=== PATIENT | male | born 1985 | race Caucasian/White ===

== ENCOUNTER → 2018-10-31 | Outpatient (CLI) | payer BC, OTHER ==
--- NOTE | 2018-10-31 09:50 | Diagnostic Imaging Report ---
PROCEDURE: US Hepatic (Liver). TECHNIQUE: Multiple real-time grayscale images were obtained over the right upper quadrant in various projections. INDICATION: Elevated liver enzymes. COMPARISON: There are no prior studies available for comparison. FINDINGS: The liver is prominent measuring approximately 20 cm in length. The liver is also more echogenic than usually seen and this appearance does suggest fatty metamorphosis. There is a 1.0 x 1.0 x 1.2 cm cyst in the right lobe. This cyst has a generally benign appearance. There is no solid hepatic mass identified and the biliary tree is not abnormally distended. There is no evidence for cholelithiasis or acute cholecystitis. The common bile duct was not well visualized. The right kidney is unremarkable. The pancreas and the proximal aorta were obscured by bowel gas. IMPRESSION: 1. There is no evidence for an acute abnormality of the right upper quadrant. 2. 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 There is also small benign-appearing cysts within the right lobe of the liver. Dictated by: Dictated on workstation # [id number]
== END ==
LOC: RAD 08:31
PROVIDERS: ATTEND Family Medicine
DX: K76.89 Other specified diseases of liver (principal); R16.0 Hepatomegaly, not elsewhere classified
CPT/HCPCS: 76705